=== PATIENT | female | born 1940 | race Caucasian/White ===

== ENCOUNTER 2021-05-28 10:36 | Emergency (ER) | payer OTHER, SELFPAY ==
--- NOTE | 2021-05-28 10:37 | ED.URI ---
HPI - URI/Sore Throat General Chief Complaint: Upper Respiratory Infection Stated Complaint: Cold Symptoms Time Seen by Provider: 05/28/21 10:37 Source: patient and RN notes reviewed History of Present Illness HPI Narrative: Patient is a 81-year-old female who presents the urgent care with complaints of sinus pressure, congestion, postnasal drainage and mild cough. Patient states the symptoms started on Thursday. Patient has been taking [id number] Vicks and an antihistamine without much relief. Denies any fever, chills, nausea, vomiting. Denies of any known exposures to Covid or influenza. No other acute complaints. No acute distress noted. Patient aware of the plan of care. Some parts of this dictation were generated by voice recognition software and may contain typographical and/or grammatical inaccuracies. Related Data Home Medications Medication Instructions Recorded Confirmed albuterol sulfate [Ventolin HFA] 2 puff INHALATION QID PRN 05/28/21 05/28/21 levothyroxine 88 mcg PO DAILY 05/28/21 05/28/21 omeprazole 20 mg PO DAILY 05/28/21 05/28/21 pravastatin 40 mg PO DAILY 05/28/21 05/28/21 umeclidinium-vilanterol [Anoro 1 inh INHALATION DAILY 05/28/21 05/28/21 Ellipta] Allergies Allergy/AdvReac Type Severity Reaction Status Date / Time Penicillins Allergy Rash Verified 05/28/21 10:53 Review of Systems Review of Systems: CONSTITUTIONAL: Denies fever, chills, or sweats. EYES: Denies visual changes, redness, or discharge. ENT: Reports a frontal sinus pressure/congestion, postnasal drainage CARDIOVASCULAR: Denies chest pain, palpitations, or edema. RESPIRATORY: Reports a mild cough without dyspnea GASTROINTESTINAL: Denies abdominal pain, nausea, vomiting, or diarrhea. GENITOURINARY: Denies dysuria or hematuria. SKIN: Denies rash or itching. MUSCULOSKELETAL: Denies back pain, joint pain, or myalgia. NEUROLOGIC: Denies headache, numbness, or weakness. All other systems reviewed are negative, except as documented in HPI. PMFSH Comments At the time of my signature, I reviewed and agree with the nursing past medical, surgical, social, and family history. There is no relevant family history pertinent to the patient complaint. Exam Narrative: GENERAL: This is a well-nourished, well-developed patient. Appears slightly fatigued HEAD: normocephalic, atraumatic. Frontal sinus tenderness EYES: PERRL. Sclera clear/white. Vision is grossly intact. EARS: External ears normal, auditory canals clear and without drainage, TMs normal without perforation. Hearing grossly intact. NOSE: External nose normal with no obvious nasal discharge, nares without redness, no rhinorrhea. THROAT: Mucous membranes moist, posterior pharynx clear. Postnasal drainage NECK: Neck supple CARDIOVASCULAR: Regular rate and rhythm without murmurs, gallops, or rubs. RESPIRATORY: Clear to auscultation. Breath sounds equal bilaterally. No wheezes, rales, or rhonchi. SKIN: warm, intact with no suspicious lesions or rash, good texture and turgor. NEURO: awake, alert, and oriented to person, place and time. There were no obvious focal neurologic abnormalities. EXTREMITIES: No clubbing, cyanosis, or edema. Course Vital Signs Vital signs: Vital Signs Temperature 98.8 F 05/28/21 10:44 Pulse Rate 72 05/28/21 10:44 Respiratory Rate 14 05/28/21 10:44 Blood Pressure 151/61 H 05/28/21 10:44 Pulse Oximetry 98 05/28/21 10:44 Temperature 98.8 F 05/28/21 10:44 Pulse Rate 72 05/28/21 10:44 Respiratory Rate 14 05/28/21 10:44 Blood Pressure 151/61 H 05/28/21 10:44 Pulse Oximetry 98 05/28/21 10:44 Reviewed-patient is informed that they may have pre-hypertension or hypertension based on a blood pressure reading in the department. I recommend the patient call the primary care provider listed on their discharge instructions or a physician of their choice this week to arrange follow-up for further evaluation of possible pre-hypertensio
[2021-05-28 10:44] VITALS: BP 151/61; PULSE 72; RESP 14; TEMP 37.1; O2SAT 98
== END 2021-05-28 11:05 | disposition home or self-care (01) ==
PROVIDERS: Emergency Provider Nurse Practitioner Family; PCP Internal Medicine Geriatric Medicine
DX: J32.9 Chronic sinusitis, unspecified (principal); E78.00 Pure hypercholesterolemia, unspecified; J44.9 Chronic obstructive pulmonary disease, unspecified; K50.90 Crohn's disease, unspecified, without complications; K21.9 Gastro-esophageal reflux disease without esophagitis; E03.9 Hypothyroidism, unspecified
CPT/HCPCS: 99213; G0463

== ENCOUNTER 2022-01-20 13:07 | Emergency (ER) | payer OTHER, SELFPAY ==
[2022-01-20 13:16] VITALS: BP 136/57; PULSE 85; RESP 20; TEMP 37.4; O2SAT 97
--- NOTE | 2022-01-20 13:49 | ED.URI ---
HPI - URI/Sore Throat General Chief Complaint: Upper Respiratory Infection Stated Complaint: Sore throat, body aches Time Seen by Provider: 01/20/22 13:40 Source: patient, RN notes reviewed and old records reviewed Mode of arrival: ambulatory Limitations: no limitations History of Present Illness HPI Narrative: 82 year old female who presents to [facility] with complaints of cough, and sore throat and body aches since Thursday with cough getting worse. She reports that she has had Covid vaccinations X2 but no Booster, has had Influenza shot in March. Patient states that she has been taking cough syrup for her cough which seemed to be worse last night and this morning. Patient does have history of COPD.Patient did take a home COVID test yesterday at 5 pm which was negative. MD elicited complaint: cough and sore throat Pertinent past history: COPD Onset (ago): day(s) (2) Treatments prior to arrival: other (vicks cough and cold medication) Related Data Home Medications Medication Instructions Recorded Confirmed albuterol sulfate 90 mcg/actuation 2 puff inhalation QID PRN Dyspnea 05/28/21 05/28/21 aerosol inhaler (Ventolin HFA) levothyroxine 88 mcg tablet 88 mcg PO DAILY 05/28/21 05/28/21 omeprazole 20 mg capsule,delayed 20 mg PO DAILY 05/28/21 05/28/21 release pravastatin 40 mg tablet 40 mg PO DAILY 05/28/21 05/28/21 umeclidinium 62.5 mcg-vilanterol 1 inh inhalation DAILY 05/28/21 05/28/21 25 mcg/actuation powdr for inhalation (Anoro Ellipta) Allergies Allergy/AdvReac Type Severity Reaction Status Date / Time Penicillins Allergy Rash Verified 01/20/22 13:31 Review of Systems Review of Systems: CONSTITUTIONAL: Denies fever, chills, or sweats. EYES: Denies visual changes, redness, or discharge. ENT: Denies rhinorrhea, congestion, positive for sore throat, no otalgia CARDIOVASCULAR: Denies chest pain, palpitations, or edema. RESPIRATORY: Positive for cough denies dyspnea. GASTROINTESTINAL: Denies abdominal pain, nausea, vomiting, or diarrhea. GENITOURINARY: Denies dysuria or hematuria. SKIN: Denies rash or itching. MUSCULOSKELETAL: Denies back pain, joint pain, or myalgia.positive for body aches NEUROLOGIC: Denies headache, numbness, or weakness. PSYCHIATRIC: Denies anxiety or depression. All systems reviewed & are unremarkable except as noted in HPI and below PMFSH Past Medical History Medical History (Updated 01/22/22 @ 10:49 by Kaykay Polo NP) COPD (chronic obstructive pulmonary disease) Crohn's disease of both small and large intestine GERD (gastroesophageal reflux disease) Hypercholesterolemia Hypothyroid Sinus problem Social History Social History (Updated 01/22/22 @ 10:52 by Kaykay Polo NP) Additional smoking assessment comments: no present tobacco use Alcohol intake: unknown Substance use type: does not use Living arrangements: with family Gender identity (if verbalized by the patient): Female Comments At time of signature agree with nursing documentation of past medical, surgica, social and family history.There is no pertinent family history pertinent to presenting complaints. Exam Narrative: GENERAL: Well-appearing, well-nourished, and in no acute distress. HEAD: Normocephalic, atraumatic. EYES: PERRLA and EOMI. ENT: Nares with mild redness clear rhinorrhea no epistaxis. Mucous membranes moist. TM's normal with good light reflex, throat mild redness no lesions or exudates or tonsil swelling post nasal drainage noted.Neck supple with no lymphadenopathy CHEST: Clear to auscultation. No respiratory distress.SAO2 97% on room air dry cough noted no tachypnea HEART: Regular rate and rhythm. No murmur heard. Normal peripheral pulses. ABDOMEN: Soft, nontender, nondistended, normal active bowel sounds. EXTREMITIES: Normal range of motion. No edema. SKIN: Warm, dry, no rash. NEURO: No focal deficits. Alert and oriented x3. Course Course Level of Care: [facility] Care Visit V
== END 2022-01-20 14:46 | disposition home or self-care (01) ==
PROVIDERS: Emergency Provider Registered Nurse; PCP Internal Medicine Geriatric Medicine
DX: U07.1 COVID-19 (principal); J44.9 Chronic obstructive pulmonary disease, unspecified; K50.80 Crohn's disease of both small and large intestine without complications; K21.9 Gastro-esophageal reflux disease without esophagitis; E78.00 Pure hypercholesterolemia, unspecified; E03.9 Hypothyroidism, unspecified
CPT/HCPCS: 87426; 87804; 99213; C9803; G0463